=== PATIENT | male | born 1970 | race Caucasian/White ===

== ENCOUNTER 2017-08-09 13:16 | Emergency (ER) | payer OTHER ==
[~2017-08-09] VITALS: Ht 175.3 cm; Wt 84.0 kg
[2017-08-09] MEDS ORDERED: COUMADIN10 MG PO (15:44)
[2017-08-09] MEDS ORDERED: WARFARIN4 MG PO (15:45)
[2017-08-09] MEDS ORDERED: AMOXICILLIN500 MG PO (16:24)
[2017-08-09 16:39] VITALS: BP 122/71
[2017-08-09 16:39] LABS: INTERNATIONAL NORMALIZED RATIO 1.8 RATIO (0.7-1.3); PROTHROMBIN TIME 20.1 SECONDS (9.0-12.5)
== END 2017-08-09 16:43 | disposition home or self-care (01) | DRG 603 ==
LOC: ED 13:16
PROVIDERS: Emergency Medicine
DX: L03.116 Cellulitis of left lower limb (principal); Z86.718 Personal history of other venous thrombosis and embolism